=== PATIENT | male | born 1965 | race Caucasian/White ===

== ENCOUNTER 2024-09-22 08:53 | Emergency (ER) | payer BC ==
[~2024-09-22] VITALS: Ht 188 cm; Wt 105.0 kg
[~2024-09-22 08:53] MED LIST: NO HOME MEDS
--- NOTE | 2024-09-22 09:27 | ELECTROCARDIOGRAPH REPORT ---
[facility] Test Date: 2024-09-22 Test Time: 08:59:26 Pat Name: RAQUEL HENDERSON Department: EMERGENCY ROOM Room: Gender: M Property Consultant: LINDA : 1965 Requested By: FARHAT BARNES Order Number: [id number] Reading MD: Dr. Carlos Mcdaniel Measurements Intervals [place] Rate: 80 P: 48 [place]: 151 QRS: 33 QRSD: 105 T: 29 QT: 358 QTc: 413 Interpretive Statements Sinus rhythm RSR' in V1 or V2, right VCD or RVH Borderline ST elevation, anterolateral leads Electronically Signed On 09-22-2024 18:18:[address] Carlos Mcdaniel Please click the below link to view image of tracing.
--- NOTE | 2024-09-22 09:58 | Physician Documentation ---
History of Present Illness ~ Chief Complaint: Mechanical Fall Stated Complaint: BACK PAIN/SYNCOPE Time Seen by MD: 09:01 Primary Medical Doctor: UNKNOWN Mode of Arrival: EMS HPI 59-year-old male presenting with a fall. Patient states that his lower back has been hurting for the past week and has been gradually getting worse. Today he was getting out of his truck when his back pain suddenly kicked in very sharply. He states that it feels like his lower back spasm that really bad. This caused him to lose his balance as he got out and fall. She states that he hit his head on the ground and may have lost consciousness as well. He reports that during the last week he has also had a lot of vertigo symptoms. States that this likely also contributed to him losing his balance and falling. Currently he complains of severe lower back pain which is radiating from the back to the front. He denies any numbness or tingling. Denies any saddle anesthesia or bowel or bladder dysfunction. P sustained a abrasion over the right side of his forehead and bumped his knee but states that his main concern right now is his lower back which hurts severely. Tetanus within 5 Years?: No Medication Reconciliation Allergies: Coded Allergies: iodine (Verified Allergy, Unknown, rash, 09/22/24) Miscellaneous Medications [No Home Meds], (Reported) Past Medical History Past Medical History: No Pertinent History Review of Systems All Other Systems at this time: Reviewed and Negative Physical Exam Vital Signs: Temperature: 98.4, Heart Rate: 68, Respiratory Rate: 22, BP: 115/85, Pulse Oximetry: 99, Weight: 105.000 Physical Exam I have reviewed the triage vitals. CONST: Well developed and well nourished. In moderate distress due to pain HEENT: Fdc with the oozing blood over the right upper forehead with underlying soft tissue swelling. EYES: Pupils are equal, round and reactive to light. Normal conjunctiva NECK: Normal range of motion. Supple. No pain with range of motion. CARDIO: Normal rate and regular rhythm. No murmurs, rubs, or gallops. S1, S2. PULM/CHEST: No respiratory distress. Lungs clear to auscultation. No wheeze ABD: Soft and nontender. Nondistended. Bowel sounds normal. No guarding. : Exam deferred MSK: No edema. No deformity. Patient is lying supine in any attempted movement causes severe lower back pain. He is holding his knees flexed and extension of the hip and knees causes severe lower back pain. NEURO: Alert and oriented to person, place and time. Moving all extremities SKIN: Warm and dry. PSYCH: Normal mood and affect. Good eye contact. Progress Results/Orders Results/Orders Orders - FARHAT BARNES MD Chest,Single View (09/22/24 09:52) Ct Head (09/22/24 ) Ct Lumbar Spine (09/22/24 ) Completed Orders - FARHAT BARNES MD Electrocardiogram (09/22/24 08:59) Fentanyl/Pf (Fentanyl 0.05 Mg/Ml Syringe (09/22/24 09:50) Normal Saline 1000ml (Sodium Chloride 10 (09/22/24 09:50) Meclizine Tablets (Antivert Tablet) (09/22/24 09:50) Cbc/Diff (09/22/24 09:52) MG (09/22/24 09:52) Chest,Single View (09/22/24 09:52) BMP (09/22/24 09:52) Hs Troponin I W Calculations (09/22/24 09:52) Ct Head (09/22/24 ) Ct Lumbar Spine (09/22/24 ) Cyclobenzaprine Tablet (Flexeril Tablet) (09/22/24 10:00) Medications Received in ER Medications (Trade) Dose Ordered Sig/Juan Route PRN Reason Start Time Stop Time Status Last Admin Dose Admin (fentaNYL 0.05 MG/ML syringe) 75 mcg ONCE ONCE IV 09/22/24 09:50 09/22/24 09:51 DC 09/22/24 10:09 75 MCG Sodium Chloride 1,000 ml @ 1,000 mls/hr ONCE ONCE IV 09/22/24 09:50 09/22/24 10:49 DC 09/22/24 10:10 1,000 MLS/HR (Antivert tablet) 25 mg ONCE ONCE PO 09/22/24 09:50 09/22/24 09:52 DC 09/22/24 10:09 25 MG (Flexeril tablet) 10 mg ONCE ONCE PO 09/22/24 10:00 09/22/24 10:01 DC 09/22/24 10:09 10 MG Vital Signs 09/22/24 09/22/24 09/22/24 09/22/24 08:54 09:01 11:36 11:51 Temp 98.4 98.4 Pulse 68 83 81 Resp 22 22 16 16 B/P (MAP) 115/85 119/79 (92) 132/88 (103) Pulse Ox 99 99 99 O2 Flow Rate 0 0 Laboratory Tests Test 09/22/24 10:02 White Blood Count 4.9 Red Blood Count 4.29 L Hemoglobin 13.7 L Hematocrit 39.4 L Mean Corpuscular Volume 91.9 Mean Corpuscular Hemoglobin 31.9 H Mean Corpuscular Hemoglobin Concent 34.7 Red Cell Distribution Width 13.5 Platelet Count 274 Mean Platelet Volume 7.5 Neutrophils (%) (Auto) 55.2 Lymphocytes (%) (Auto) 32.9 Monocytes (%) (Auto) 10.4 Eosinophils (%) (Auto) 0.8 Basophils (%) (Auto) 0.7 Neutrophils # (Auto) 2.7 Lymphocytes # (Auto) 1.6 Monocytes # (Auto) 0.5 Eosinophils # (Auto) 0.0 Basophils # (Auto) 0.0 CBC Comment Sodium Level 136 Potassium Level 4.1 Chloride Level 103 Carbon Dioxide Level 24.0 Anion Gap 9 Blood Urea Nitrogen 14 Creatinine 1.08 Estimated GFR/1.73 m2 70 BUN/Creatinine Ratio 13.0 Glucose Level 104 Calcium Level 9.2 Magnesium Level 2.0 Troponin I High Sensitivity 5 Albumin 4.0 Chemistry Comments EKG/XRAY/CT/US/VASC/MRI EKG : Additional Comment EKG interpreted by CLOVER Barnes shows normal sinus rhythm at a rate of 80 bpm normal axis, no [place] intervals. No ischemia. Chest X-Ray : Additional Comments EXAM: DI CHEST,SINGLE VIEW HISTORY: CHEST PAIN COMPARISON: None TECHNIQUE: Portable supine AP view of the chest was performed. FINDINGS: No pneumothorax, consolidative infiltrates, or pulmonary edema. The heart is not enlarged. There is thoracic degenerative disc disease. IMPRESSION: No acute intrathoracic process. : Impression EXAM: CT CT LUMBAR SPINE HISTORY: syncope/vertigo COMPARISON: None TECHNIQUE: Noncontrast axial CT images of the lumbar spine were performed. Sagittal and coronal reformatted images were obtained. This CT exam was pe rformed using one or more of the following dose reduction techniques: Automated exposure control, adjustment of the mA and/or kv according to patient size, or the use of iterative reconstruction techniques. Radiation Dose: CT Dose: CTDI volume is 32.49 mGy. Dose-length product is 1096.13 mGy*cm FINDINGS: No fracture or listhesis are identified in the lumbar spine. There is moderate lumbar degenerative disc disease. There is hafu-ru-tciikcod spinal canal stenosis L2-L3. There is significant neural foraminal stenosis at L3-L4 on the right and L4-L5 bilaterally. There is mild lumbar levoscoliosis. IMPRESSION: 1. No fracture of the lumbar spine. 2. Degenerative disc disease with significant neural foraminal stenosis at L3-L4 on the right and L4-L5 bilaterally. These findings might correspond to lower extremity radicular symptoms in the right L3 and bilateral L4 nerve root dist ributions. 3. Gmpr-ks-mojtyoty spinal canal stenosis L2-L3. 4. Mild lumbar levoscoliosis. : CT CT HEAD HISTORY: syncope/vertigo COMPARISON: None TECHNIQUE: Axial images of the head were obtained and reformatted in coronal and sagittal planes. All CT scans at this medical facility are performed using dose modulation techniques as appropriate to a performed exam including the following: Automated exposure control was utilized; adjustment of the MA and/or KV according to patient size; and use of iterative reconstruction technique. CT Dose: CTDI volume is 63 mGy. Dose-length product is 1033 mGy*cm FINDINGS: There is no evidence of acute intracranial hemorrhage, mass, mass effect midline shift. There is no hydrocephalus or extra-axial fluid collection. Almaguer-white matter differentiation is maintained. The visualized paranasal sinuses and mastoid air cells are clear. The calvarium is intact. IMPRESSION: 1. No acute intracranial process. HS:Y Medical Decision Making Additional Comment This is a 59-year-old male who presents after a mechanical fall which may have also been due to his vertigo symptoms. Patient initially with severe lower back pain. He was medicated with IV fentanyl 75 mcg as well as 10 mg of p.o. cyclobenzaprine with good improvement and near resolution of symptoms. We did do a CT of the lumbar spine which indicated no fractures but does show that he has some moderate spinal stenosis. Additionally given his near-syncope and dizz iness symptoms we did do a CT of the head and did not notice any intracranial pathology at this time. Patient was given IV fluids as well and on reassessment was doing much better. His pain was now minimal and he was able to get up and ambulate without any difficulty. I advised the patient that he has no fractures but does have some spinal stenosis and encouraged him to follow up with his primary care physician for a MRI of his lower back. For pain control I did prescribe him some cyclobenzaprine as well as 14 tablets of [place] 5-325 mg for breakthrough pain. I encouraged him to take ibuprofen 1st and reserve these medications only for breakthrough pain. Additionally I will prescribe him meclizine to take as needed for his vertigo symptoms and encouraged him to drink plenty of fluids and get plenty of rest. Advised to follow up closely with his primary care physician within the next 1-2 weeks. Return immediately to the emergency department with any acutely worsening symptoms. Departure Disposition: 01 HOME / SELF CARE / HOMELESS Impression: Primary Impression: Muscle spasm of back Additional Impressions: Spinal stenosis Benign paroxysmal vertigo Fall Closed head injury Condition: Improved Discharge Instructions: Benign Positional Vertigo, Muscle Cramps and Spasms, Spinal Stenosis Additional Instructions: Take medication as prescribed. Try to control pain with ibuprofen 600 mg every 6 hours as needed. If this does not work may take [place] for breakthrough pain. Please minimize use of [place] as much as possible as this medication can be addictive. May also use cyclobenzaprine muscle relaxer at nighttime or any time for muscle spasms. They also prescribed some meclizine for vertigo symptoms. Encourage you to drink plenty of fluids and also get adequate rest. Please follow up closely with her primary care physician for a order for a MRI of your lower back as our workup today indicated that you have some spinal stenosis. Monitor your symptoms for improvement. Return to the ED with any acutely worsening symptoms. Referrals: NO PRIMARY CARE PROVIDER (PCP) Prescriptions Meclizine HCl (Meclizine HCl) 25 Mg Tablet 1 TAB PO TID PRN for 10 Days, #30 TAB Prov: FARHAT BARNES MD 09/22/24 Hydrocodone Bit/Acetaminophen 5/325 MG ([place] 5/325 MG) 5 Mg/325 Mg Tablet 1 TAB PO Q6H PRN for pain, #14 TAB Prov: FARHAT BARNES MD 09/22/24 Cyclobenzaprine HCl (Cyclobenzaprine HCl) 10 Mg Tablet 1 TAB PO Q8H for muscle spasms for 10 Days, #30 TAB 0 Refills Prov: FARHAT BARNES MD 09/22/24 Signature Scribe Signature: - Attestation: - FARHAT BARNES MD Sep 22, 2024 09:58
[2024-09-22] MEDS: meclizine 12.5mg tablet PO ONE (10:09)
[2024-09-22] MEDS: cyclobenzaprine 10mg tablet PO ONE (10:09)
[2024-09-22] MEDS: fentaNYL/PF 50MCG/1 ML 2ML syringe IV ONE (10:09)
[2024-09-22] MEDS: normal saline 1000ml 1,000 ML IV ONE (10:10)
[2024-09-22 10:14] LABS: BASOPHILS % (AUTO) 0.7 % (0-1); EOSINOPHILS % (AUTO) 0.8 % (0-6); HEMATOCRIT 39.4 % (42.0-52.0); HEMOGLOBIN 13.7 g/dl (14.0-17.9); LYMPHOCYTES # (AUTO) 1.6 X10'3 (1.1-4.8); LYMPHOCYTES % (AUTO) 32.9 % (21-51); MEAN CORPUSCULAR HEMOGLOBIN 31.9 PG (27.0-31.0); MEAN CORPUSCULAR HGB CONC 34.7 g/dL (33.0-36.5); MEAN CORPUSCULAR VOLUME 91.9 FL (78-98); MEAN PLATELET VOLUME 7.5 FL (7.4-10.4); MONOCYTES # (AUTO) 0.5 X10'3 (0-0.9); MONOCYTES % (AUTO) 10.4 % (2-12); NEUTROPHILS # (AUTO) 2.7 X10'3 (1.8-7.7); NEUTROPHILS % (AUTO) 55.2 % (42-75); PLATELET COUNT 274 X10'3 (140-440); RED BLOOD COUNT 4.29 X10'6 (4.70-6.10); RED CELL DISTRIBUTION WIDTH 13.5 % (11.5-14.5); WHITE BLOOD COUNT 4.9 X10'3 (4.5-11.0)
[2024-09-22 10:24] LABS: ANION GAP 9 (8-16); BLOOD UREA NITROGEN 14 MG/DL (7-18); CALCIUM 9.2 MG/DL (8.5-10.1); CHLORIDE 103 MMOL/L (99-107); CREATININE 1.08 MG/DL (0.60-1.10); GLUCOSE 104 MG/DL (70-104); POTASSIUM 4.1 MMOL/L (3.5-5.1); SODIUM 136 MMOL/L (135-145); eCRCL 85 ML/MIN; eGFR 70 ML/MIN
--- NOTE | 2024-09-22 10:54 | RADIOLOGY REPORT ---
EXAM: CT CT HEAD HISTORY: syncope/vertigo COMPARISON: None TECHNIQUE: Axial images of the head were obtained and reformatted in coronal and sagittal planes. All CT scans at this medical facility are performed using dose modulation techniques as appropriate t o a performed exam including the following: Automated exposure control was utilized; adjustment of th e MA and/or KV according to patient size; and use of iterative reconstruction technique. CT Dose: CTDI volume is 63 mGy. Dose-length product is 1033 mGy*cm FINDINGS: There is no evidence of acute intracranial hemorrhage, mass, mass effect midline shift. There is no h ydrocephalus or extra-axial fluid collection. Almaguer-white matter differentiation is maintained. The visualized paranasal sinuses and mastoid air cells are clear. The calvarium is intact. IMPRESSION: 1. No acute intracranial process. HS:Y
--- NOTE | 2024-09-22 11:06 | RADIOLOGY REPORT ---
EXAM: CT CT LUMBAR SPINE HISTORY: syncope/vertigo COMPARISON: None TECHNIQUE: Noncontrast axial CT images of the lumbar spine were performed. Sagittal and coronal refor matted images were obtained. This CT exam was performed using one or more of the following dose reduc tion techniques: Automated exposure control, adjustment of the mA and/or kv according to patient size , or the use of iterative reconstruction techniques. Radiation Dose: CT Dose: CTDI volume is 32.49 mGy. Dose-length product is 1096.13 mGy*cm FINDINGS: No fracture or listhesis are identified in the lumbar spine. There is moderate lumbar degenerative di sc disease. There is kucs-sc-orsqpepe spinal canal stenosis L2-L3. There is significant neural martínez inal stenosis at L3-L4 on the right and L4-L5 bilaterally. There is mild lumbar levoscoliosis. IMPRESSION: 1. No fracture of the lumbar spine. 2. Degenerative disc disease with significant neural foraminal stenosis at L3-L4 on the right and L4- L5 bilaterally. These findings might correspond to lower extremity radicular symptoms in the right L 3 and bilateral L4 nerve root distributions. 3. Rqji-qi-icyjesqy spinal canal stenosis L2-L3. 4. Mild lumbar levoscoliosis.
--- NOTE | 2024-09-22 11:12 | RADIOLOGY REPORT ---
EXAM: DI CHEST,SINGLE VIEW HISTORY: CHEST PAIN COMPARISON: None TECHNIQUE: Portable supine AP view of the chest was performed. FINDINGS: No pneumothorax, consolidative infiltrates, or pulmonary edema. The heart is not enlarged. There is t horacic degenerative disc disease. IMPRESSION: No acute intrathoracic process.
[2024-09-22] MEDS ORDERED: HYDR-3965 PO (12:01)
[2024-09-22] MEDS ORDERED: CYCL-395 PO (12:01)
[2024-09-22] MEDS ORDERED: MECL-302 PO (12:08)
[2024-09-22 12:43] VITALS: BP 132/88; PULSE 81; RESP 16; TEMP 98.4; O2SAT 99
== END 2024-09-22 12:40 | disposition home or self-care (01) ==
LOC: ER 08:54
DX: M48.061 Spinal stenosis, lumbar region without neurogenic claudication (principal); H81.10 Benign paroxysmal vertigo, unspecified ear; S09.90XA Unspecified injury of head, initial encounter; Z88.8 Allergy status to other drugs, medicaments and biological substances; Z91.041 Radiographic dye allergy status; W19.XXXA Unspecified fall, initial encounter; Y93.89 Activity, other specified; Y92.89 Other specified places as the place of occurrence of the external cause; Y99.8 Other external cause status
CPT/HCPCS: 36415; 70450; 71045; 72131; 80048; 83735; 84484; 85025; 93005; 96361; 96374; 99285; J3010; J7030; J8597

== ENCOUNTER 2024-10-09 02:19 | Emergency (ER) | payer BC ==
[~2024-10-09] VITALS: Ht 185.4 cm; Wt 100.5 kg
[~2024-10-09 02:19] MED LIST changes: +CYCL-395 PO; +HYDR-3965 PO; +MECL-302 PO
[2024-10-09 02:22] VITALS: TEMP 98.2
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
[2024-10-09 03:47] VITALS: BP 121/86; PULSE 107; RESP 16; O2SAT 96
== END 2024-10-09 04:04 ==
LOC: ER 02:19
DX: F10.129 Alcohol abuse with intoxication, unspecified (principal); Z91.041 Radiographic dye allergy status; Z79.899 Other long term (current) drug therapy; Y90.9 Presence of alcohol in blood, level not specified
CPT/HCPCS: 99283